=== PATIENT | male | born 1960 | race Caucasian/White ===

== ENCOUNTER 2024-09-24 05:18 | Day surgery (SDC) | payer MEDICARE, BC ==
[2024-09-24] MEDS: Dextrose 5%-0.45% NaCl 1,000 ML IV SCH (05:38)
[2024-09-24] MEDS ORDERED: Midazolam 1 MG/ML 2 ML SDV ONE (06:14)
[2024-09-24] MEDS ORDERED: Midazolam 1 MG/ML 2 ML SDV IV ONE (06:15)
[2024-09-24] MEDS ORDERED: fentaNYL 100 MCG/2 ML SDV IV ONE (06:15)
[2024-09-24] MEDS ORDERED: fentaNYL 100 MCG/2 ML SDV ONE (06:15)
[2024-09-24] MEDS: fentaNYL 100 MCG/2 ML SDV IV ONE ×2 (06:28→06:29)
[2024-09-24] MEDS: Midazolam 1 MG/ML 2 ML SDV IV ONE ×4 (06:29→06:35)
[2024-09-24 08:01] VITALS: BP 115/73; PULSE 60
== END 2024-09-24 08:06 | disposition home or self-care (01) ==
LOC: DL.ENDO 05:18
PROVIDERS: ATTEND Internal Medicine Gastroenterology
DX: Z12.11 Encounter for screening for malignant neoplasm of colon (principal); D12.0 Benign neoplasm of cecum; K57.30 Diverticulosis of large intestine without perforation or abscess without bleeding; K64.8 Other hemorrhoids; E78.5 Hyperlipidemia, unspecified; N18.2 Chronic kidney disease, stage 2 (mild)
CPT/HCPCS: 88305; J2250; J3010; J7799